=== PATIENT | male | born 1975 | race Caucasian/White ===

== ENCOUNTER 2016-10-02 11:45 | Emergency (ER) | payer OTHER ==
[2016-10-02 12:04] VITALS: BP 117/80; PULSE 75; TEMP 98.4; BMI 29.0
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
== END 2016-10-02 13:21 | disposition home or self-care (01) ==
LOC: FER 11:45
DX: S20.219A Contusion of unspecified front wall of thorax, initial encounter (principal); J45.909 Unspecified asthma, uncomplicated; W50.0XXA Accidental hit or strike by another person, initial encounter; Y93.89 Activity, other specified; Y92.159 Unspecified place in reform school as the place of occurrence of the external cause; Y99.0 Civilian activity done for income or pay
CPT/HCPCS: 71101-TC; 99282-25

== ENCOUNTER 2019-07-26 18:02 | Emergency (ER) | payer OTHER ==
[2019-07-26] MEDS ORDERED: ACETAMINOPHEN 500 MG TABLET (FP) PO ONE (18:34)
[2019-07-26] MEDS ORDERED: IBUPROFEN 600 MG TABLET (FP) PO ONE ×2 (18:34→18:38)
[2019-07-26] MEDS ORDERED: ACETAMINOPHEN 500 MG TABLET (FP) ONE (18:38)
[2019-07-26 18:44] LABS: BASO % 0.9 % (0-2.0); EOS % 2.4 % (0-4.5); HEMATOCRIT 42.7 % (35.4-49); HEMOGLOBIN 14.2 GM/dl (11.7-16.9); LYMPH % 25.8 % (8-40); MCH 30.6 pg (25.7-33.7); MCHC 33.2 g/dl (32.0-35.9); MEAN CELL VOLUME 92.2 fl (80-96); MEAN PLT VOLUME 7.3 fl (7.5-11.1); MONO % 5.9 % (3.8-10.2); PLATELET COUNT 390 K/MM3 (134-434); RBC 4.63 M/mm3 (4.00-5.60); RDW 12.8 % (11.9-15.9); WHITE BLOOD COUNT 7.8 K/mm3 (4.0-10.8)
[2019-07-26 18:51] LABS: ALBUMIN 4.5 g/dl (3.4-5.0); CALCIUM 9.5 mg/dl (8.5-10); CREATININE 1.1 mg/dl (0.55-1.3); POTASSIUM 3.7 mmol/L (3.5-5.1); TOT PROT 7.7 g/dl (6.4-8.2)
--- NOTE | 2019-07-26 18:53 | PDOC ---
Documentation entered by Jovita Rivero SCRIBE, acting as scribe for Khanh Burch MD. Khanh Burch MD: This documentation has been prepared by the Mat beltran Adrianna, SCRIBE, under my direction and personally reviewed by me in its entirety. I confirm that the documentation accurately reflects all work, treatment, procedures, and medical decision making performed by me. History of Present Illness - General Chief Complaint: Chest Pain Stated Complaint: CHEST PAIN Time Seen by Provider: 07/26/19 18:05 History Source: Patient Exam Limitations: No Limitations - History of Present Illness Initial Comments: The patient is a 43 year old male, with a significant PMH of asthma and HLD, who presents to the ED for evaluation of chest pain for~6 hours. 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 He describes it as a knot in his left lower chest wall, that is constant and And seems to worsen with certain movements. There is no radiation of the pain Denies any recent trauma, heavy lifting, or falls. Denies fever, chills, SOB, nausea, vomit, diaphoresis, diarrhea, constipation, dysuria, hematuria, abdominal pain back pain. Allergies: NKA, NKDA Surgical History: None reported Social History: Current everyday smoker. Denies EtOH or illicit drug use PCP: Dr. De Oliveira Past History - Past Medical History Allergies/Adverse Reactions: Allergies Allergy/AdvReac Type Severity Reaction Status Date / Time No Known Allergies Allergy Verified 10/02/16 11:51 Home Medications: Ambulatory Orders Albuterol Sulfate Inhaler - [Ventolin Hfa Inhaler -] 1 - 2 inh PO QID PRN Beclomethasone Dipropionate [Qvar] 2 inh IH BID 10/02/16 Cholecalciferol (Vitamin D3) [Vitamin D3] 50,000 unit PO WEEKLY 10/02/16 Asthma: Yes COPD: No Diabetes: No HTN: No - Psycho Social/Smoking Cessation Hx Smoking Status: No Smoking History: Never smoked Have you smoked in the past 12 months: No Number of Cigarettes Smoked Daily: 0 Information on smoking cessation initiated: No Hx Alcohol Use: No Drug/Substance Use Hx: No Substance Use Type: None Review of Systems - Review of Systems Able to Perform ROS?: Yes Comments:: Constitutional - Pt denies Fever, Chills, weakness, HEENT: denies vision changes, sore throat Respiratory: Denies cough, sob, hemoptysis Cardiac: +left lower chest wall pain. denies palpitations, lightheadedness, leg swelling Abd/GI: denies abd pain, nausea, vomiting, blood per rectum, melena, diarrhea : denies dysuria, frequency, discharge Musculoskeletal - denies back pain, joint swelling skin - denies bruising, erythema, rash neurological: denies headache, numbness, focal weakness, tingling, ataxia, weakness hematologic: denies anemia, easy bruising, easy bleeding *Physical Exam - Vital Signs Last Vital Signs Temp Pulse Resp BP Pulse Ox 97.8 F 80 20 164/89 99 07/26/19 18:02 07/26/19 18:02 07/26/19 18:02 07/26/19 18:02 07/26/19 18:02 - Physical Exam Comments: GENERAL: The patient is awake, alert, and fully oriented, Nontoxic - in no acute distress. HEAD: Normocephalic, atraumatic. EYES: extraocular movements intact, sclera anicteric, conjunctiva clear. ENT: Normal voice, Moist mucous membranes. NECK: Normal range of motion, supple without lymphadenopathy, JVD, or masses. LUNGS: Breath sounds equal, clear to auscultation bilaterally. No wheezes, no crackles, no rales. HEART: +Reproducible left sternal border chest pain. Regular rate and rhythm, normal S1 and S2 without murmur, rub or gallop. No rashes present ABDOMEN: Soft, nontender, normoactive bowel sounds. No guarding, no rebound. No masses. EXTREMITIES: Normal range of motion, no edema. No clubbing or cyanosis. No cords, erythema, or tenderness. NEUROLOGICAL: No facial asymmetry, Normal speech, normal gait. PSYCH: Normal mood, normal affect. SKIN: Warm, Dry, normal turgor, no rashes or lesions noted. Heart Score/ECG Review - ECG Impressions Comment:: 07/26/19 18:51 Twelve-lead EKG was performed and reviewed by me. There is normal sinus rhythm with a normal rate. Rate of 72 The axis is normal. The intervals are normal. There is normal R wave progression There are no ST or T wave abnormalities. Impression: Normal twelve-lead EKG ED Treatment Course - LABORATORY CBC & Chemistry Diagram: 07/26/19 18:20 07/26/19 18:20 - ADDITIONAL ORDERS Additional order review: 07/26/19 18:20 RBC 4.63 MCV 92.2 MCHC 33.2 RDW 12.8 MPV 7.3 L Neutrophils % 65.0 Lymphocytes % 25.8 D Monocytes % 5.9 Eosinophils % 2.4 Basophils % 0.9 - Medications Given in the ED: ED Medications Discontinued Medications Generic Name Dose Route Start Last Admin Trade Name Kai PRN Reason Stop Dose Admin Acetaminophen 1,000 mg 07/26/19 18:34 07/26/19 18:40 Tylenol - PO 07/26/19 18:35 1,000 mg ONCE ONE Administration Ibuprofen 600 mg 07/26/19 18:34 07/26/19 18:40 Motrin - PO 07/26/19 18:35 600 mg ONCE ONE Administration Medical Decision Making - Medical Decision Making 07/26/19 18:45 43y M hx of hl presents with chest pain since approx 1pm, started while he was at [employer]. pain was in the L anterior chest, worse with movement without associated sob, howe, diaphriesis, n/v, back pain, numbness/tingling/weakness or radiation to extremities and not worse with exertion. pain persisteted until now so pt presents for evaluation. pain exactly reproducible by palpation highly suspect msk pain/strain. will obtain screening ekg to screen for acs, will obtian labs [place] lgive tylenol/motrin if neg will dc with outpatient mangement Discharge - Discharge Information Problems reviewed: Yes Clinical Impression/Diagnosis: Costochondritis, acute Condition: Stable Disposition: HOME - Admission No - Follow up/Referral Referrals: Milly De Oliveira MD [Primary Care Provider] - - Patient Discharge Instructions Patient Printed Discharge Instructions: DI for Atypical Chest Pain Additional Instructions: Return to the emergency department immediately with ANY new, persistent or worsening symptoms Including any shortness of breath, feeling sweaty or nauseous or if the pain worsens when you are walking running. I suspect your test pain may be muscular in nature, Take Motrin or Tylenol as needed for your pain. You MUST call and follow up with your doctor 3 to 4 days for further evaluation of your symptoms. Results were discussed with you. Please make sure your doctor reviews the results of your emergency evaluation. Your Emergency Department visit is not complete without a follow up with your doctor. - Post Discharge Activity Work/Back to School Note: Back to Work
--- NOTE | 2019-07-26 19:21 | PDOC ---
*Physical Exam - Vital Signs Last Vital Signs Temp Pulse Resp BP Pulse Ox 97.8 F 80 20 164/89 99 07/26/19 18:02 07/26/19 18:02 07/26/19 18:02 07/26/19 18:02 07/26/19 18:02 Heart Score/ECG Review - History History: Slightly suspicious - Electrocardiogram EKG: Normal - Age Age: </= 45 - Risk Factors Based on the list above the patient has:: 1-2 risk factors - Troponin Troponin: </= normal limit - Score Heart Score - Total: 1 ED Treatment Course - LABORATORY CBC & Chemistry Diagram: 07/26/19 18:20 07/26/19 18:20 - ADDITIONAL ORDERS Additional order review: Laboratory Results 07/26/19 07/26/19 18:20 18:20 Sodium 139 Potassium 3.7 Chloride 104 Carbon Dioxide 29 Anion Gap 6 L BUN 15.0 Creatinine 1.1 Est GFR (CKD-EPI)AfAm 96.13 Est GFR (CKD-EPI)NonAf 82.94 Random Glucose 92 Calcium 9.5 Total Bilirubin 1.0 AST 21 ALT 15 Alkaline Phosphatase 45 Creatine Kinase 215 Troponin I < 0.03 Total Protein 7.7 Albumin 4.5 07/26/19 18:20 RBC 4.63 MCV 92.2 MCHC 33.2 RDW 12.8 MPV 7.3 L Neutrophils % 65.0 Lymphocytes % 25.8 D Monocytes % 5.9 Eosinophils % 2.4 Basophils % 0.9 - Medications Given in the ED: ED Medications Discontinued Medications Generic Name Dose Route Start Last Admin Trade Name Freq PRN Reason Stop Dose Admin Acetaminophen 1,000 mg 07/26/19 18:34 07/26/19 18:40 Tylenol - PO 07/26/19 18:35 1,000 mg ONCE ONE Administration Ibuprofen 600 mg 07/26/19 18:34 07/26/19 18:40 Motrin - PO 07/26/19 18:35 600 mg ONCE ONE Administration ED Progress Note - Progress Note Progress Note: 07/26/19 19:19 Care of this patient was transferred to [place] Dr. hendrickson at 1900 hrs. Patient is a 43-year-old male who comes in complaining of chest pain. Patient's pain is reproducible with palpation of the anterior chest wall. However patient did have a work-up including EKG and blood work. Patient's blood work was pending at the time of my assuming care of the patient. Patient's blood work is not back and his troponin is negative and the rest of the blood work is unremarkable. Patient's heart score is 1. Patient discharged told to take anti- inflammatories and follow-up with his primary care doctor. Discharge - Discharge Information Problems reviewed: Yes Clinical Impression/Diagnosis: Costochondritis, acute Condition: Stable Disposition: HOME - Follow up/Referral Referrals: Milly De Oliveira MD [Primary Care Provider] - - Patient Discharge Instructions Patient Printed Discharge Instructions: DI for Atypical Chest Pain Additional Instructions: Return to the emergency department immediately with ANY new, persistent or worsening symptoms Including any shortness of breath, feeling sweaty or nauseous or if the pain worsens when you are walking running. I suspect your test pain may be muscular in nature, Take Motrin or Tylenol as needed for your pain. You MUST call and follow up with your doctor 3 to 4 days for further evaluation of your symptoms. Results were discussed with you. Please make sure your doctor reviews the results of your emergency evaluation. Your Emergency Department visit is not complete without a follow up with your doctor. - Post Discharge Activity Work/Back to School Note: Back to Work
[2019-07-26 19:43] VITALS: BP 123/80; PULSE 88; TEMP 97.8; BMI 29.0
--- NOTE | 2019-07-27 17:53 | EKG ---
Test Reason : Blood Pressure : / mmHG Vent. Rate : 072 BPM Atrial Rate : 072 BPM P-R Int : 170 ms QRS Dur : 086 ms QT Int : 372 ms P-R-T Axes : 058 007 050 degrees QTc Int : 407 ms NORMAL SINUS RHYTHM NORMAL ECG NO PREVIOUS ECGS AVAILABLE Confirmed by MD Viry, Karri ([id number]) on 07/27/2019 5:52:33 PM Referred By: MD WORRELL Confirmed By:Karri Baires MD
== END 2019-07-26 19:25 | disposition home or self-care (01) ==
LOC: FER 18:02
DX: M94.0 Chondrocostal junction syndrome [Tietze] (principal); I10 Essential (primary) hypertension; E78.5 Hyperlipidemia, unspecified; J45.909 Unspecified asthma, uncomplicated; F17.210 Nicotine dependence, cigarettes, uncomplicated
CPT/HCPCS: 36415; 80053; 82550; 82553; 84484; 85025; 93005; 99284-25

== ENCOUNTER 2020-07-17 10:20 | Emergency (ER) | payer OTHER | END 2020-07-17 13:28 | disposition home or self-care (01) | LOC: JVIRT 10:20 | DX: Z11.59 Encounter for screening for other viral diseases (principal) | CPT/HCPCS: C9803; Q3014-GT; U0003 ==

== ENCOUNTER 2021-02-02 23:03 | Emergency (ER) | payer OTHER ==
[2021-02-02 23:09] VITALS: BP 128/81; PULSE 98; TEMP 99.1; BMI 30.5
[2021-02-02] MEDS ORDERED: DIPHTH,PERTUSS(ACELL),TET 0.5 ML DISP.SYRIN IM ONE ×2 (23:18→23:27)
== END 2021-02-02 23:52 | disposition home or self-care (01) ==
LOC: FER 23:03
PROC: 3E0234Z Introduction of Serum, Toxoid and Vaccine into Muscle, Percutaneous Approach (ICD-10-PCS; principal; 2021-02-02)
DX: S51.851A Open bite of right forearm, initial encounter (principal)
CPT/HCPCS: 90715; 99284-25

== ENCOUNTER 2023-08-08 21:49 | Emergency (ER) | payer BC, OTHER ==
[2023-08-08 22:03] VITALS: BP 126/86; PULSE 96; RESP 16; TEMP 99.8; BMI 29.2
[2023-08-08] MEDS ORDERED: IBUPROFEN 400 MG TABLET (FP) PO ONE ×2 (22:09)
[2023-08-08] MEDS ORDERED: ACETAMINOPHEN 325 MG TABLET (FP) PO ONE (22:09)
[2023-08-08] MEDS ORDERED: ACETAMINOPHEN 325 MG TABLET (FP) ONE (22:10)
[2023-08-09 00:37] LABS: THROAT:GRP A STREP NOT DETECTED (NOTDETECTED)
== END 2023-08-08 22:38 | disposition home or self-care (01) ==
LOC: FER 21:49
DX: J02.9 Acute pharyngitis, unspecified (principal); B34.9 Viral infection, unspecified; R50.9 Fever, unspecified; M79.10 Myalgia, unspecified site; R07.89 Other chest pain; R06.02 Shortness of breath; Z20.822 Contact with and (suspected) exposure to COVID-19
CPT/HCPCS: 0241U-QW; 87651; 99283-25

== ENCOUNTER 2025-05-26 06:48 | Emergency (ER) | payer OTHER ==
[2025-05-26 06:54] VITALS: RESP 16; TEMP 97.5; BMI 28.4
[2025-05-26 08:01] VITALS: BP 165/103; PULSE 65
== END 2025-05-26 08:27 | disposition home or self-care (01) ==
LOC: FER 06:48
DX: L50.9 Urticaria, unspecified (principal)
CPT/HCPCS: 99283-25